=== PATIENT | female | born 1950 | race Caucasian/White ===

== ENCOUNTER 2016-05-25 11:22 | Outpatient (CLI) | payer MEDICARE, OTHER ==
[2016-05-25 11:49] LABS: Calc. Creatinine Clearance 0 mL/min (70-130); Estimated GFR-MDRD Greater than 90
[2016-05-25] MEDS ORDERED: Iopamidol 370 76% 100 ML VIAL ONE (13:55)
--- NOTE | 2016-05-25 18:19 | CT ---
CT ABDOMEN AND PELVIS WITH CONTRAST 05/25/16 HISTORY: Surgical planning for incisional hernia from last operation. Removal of uterus. Midline scar. COMPARISON: CT abdomen and pelvis with contrast 11/15/14. FINDINGS: Calcified granuloma left lung base is similar. No other abnormality of the lung bases. No pericardia l effusion. There is some calcifications of the mitral valve. There is diffuse hepatic steatosis with some peripheral fatty sparring. There is a few calcified gra nulomas in the spleen. The pancreas and adrenal glands are unremarkable. There is similar appearance of the peripheral renal cortical hypodensities suggestive of cysts. There is an incisional hernia on the anterior abdominal wall containing fat. There are actually two separate hernias. One containing fat and fluid with the neck measuring 2.1 cm x 3 cm, containing ome ntal fat and fluid. The other contains omental fat and no fluid and measures 2.1 x 4.5 cm. There is mild vascular congestion. There is some mild diastasis recti. Aortoiliac contour is normal with moderate atherosclerotic plaque. Moderate diverticular disease without active inflammation. IMPRESSION: 1. Two separate incisional hernias anterior abdominal wall. First most craniad one contains ome ntal fat and fluid measures 3.1 x 2.1 cm and the other is connected although just caudal measuring a pproximately 2.1 x 4.4 cm. There is mild vascular congestion without evidence of ischemia. 2. Diffuse hepatic steatosis with some peripheral and perigallbladder focal fatty sparring. 1. POS: [facility]
== END 2016-05-25 11:23 | disposition home or self-care (01) ==
LOC: MADLAB 11:22
PROVIDERS: ATTEND Surgery
DX: K43.2 Incisional hernia without obstruction or gangrene (principal); K76.0 Fatty (change of) liver, not elsewhere classified
CPT/HCPCS: 36415; 74177; 82565

== ENCOUNTER 2017-11-06 12:15 | Emergency (ER) | payer MEDICARE, OTHER ==
[2017-11-06] MEDS ORDERED: Diazepam 5 MG TAB ONE (12:53)
[2017-11-06] MEDS ORDERED: Ondansetron HCl/PF 4 MG/2 ML Vial ONE (12:53)
[2017-11-06 12:59] LABS: #Basophils 0.1 thou/uL (0.0-0.2); #Lymphocytes 1.2 thou/uL (1.20-3.40); #Monocytes 0.7 thou/uL (0.11-0.59); #Neutrophils 4.5 thou/uL (1.40-6.50); %Basophils 1.4 % (0.0-1.0); %Eosinophils 0.3 % (0.0-10.0); %Lymphocytes 18.8 % (21.0-51.0); %Neutrophils 69.4 % (42.0-75.0); Hemoglobin 14.7 g/dL (12.0-16.0); Mean Corpuscular HGB CONC 34.4 g/dL (32.0-36.0); Mean Corpuscular Hemoglobin 32.8 pg (27.0-31.0); Mean Corpuscular Volume 95.4 fL (78.0-98.0); Mean Platelet Volume 5.5 fL (7.4-10.4); Platelet Count 267 thou/uL (130-400); RBC Distribution Width 10.7 % (11.5-14.5); Red Blood Cell (RBC) Count 4.47 mill/uL (4.20-5.40); White Blood Cell (WBC) Count 6.5 thou/uL (4.8-10.8)
[2017-11-06 13:15] LABS: Anion Gap 17 mmol/L (10-20); BUN (Urea Nitrogen) 4 mg/dL (9.8-20.1); Calc. Creatinine Clearance 0 mL/min (70-130); Calcium 8.5 mg/dL (7.8-10.44); Carbon Dioxide 24 mmol/L (23-31); Chloride 100 mmol/L (98-107); Estimated GFR-MDRD Greater than 90; Glucose 123 mg/dL (80-115); Potassium 3.8 mmol/L (3.5-5.1); Sodium 137 mmol/L (136-145)
[2017-11-06 13:20] LABS: CKMB 1.4 ng/mL (0-6.6); Troponin I 0.022 ng/mL (< 0.028)
== END 2017-11-06 14:00 | disposition home or self-care (01) ==
LOC: MADERS 12:15
DX: H81.13 Benign paroxysmal vertigo, bilateral (principal); E05.90 Thyrotoxicosis, unspecified without thyrotoxic crisis or storm; F17.210 Nicotine dependence, cigarettes, uncomplicated; I10 Essential (primary) hypertension
CPT/HCPCS: 36415; 80048; 82553; 84484; 85025; 93005; 96361; 96374; J2405

== ENCOUNTER 2023-06-19 11:04 | Emergency (ER) | payer MEDICARE, OTHER | END 2023-06-19 14:29 | disposition home or self-care (01) | LOC: MADERS 11:04 | DX: S52.572A Other intraarticular fracture of lower end of left radius, initial encounter for closed fracture (principal); S92.322A Displaced fracture of second metatarsal bone, left foot, initial encounter for closed fracture; S92.332A Displaced fracture of third metatarsal bone, left foot, initial encounter for closed fracture; E03.9 Hypothyroidism, unspecified; I10 Essential (primary) hypertension; E05.90 Thyrotoxicosis, unspecified without thyrotoxic crisis or storm; F17.210 Nicotine dependence, cigarettes, uncomplicated; W18.30XA Fall on same level, unspecified, initial encounter ==